=== PATIENT | male | born 1965 | race Caucasian/White ===

== ENCOUNTER → 2017-03-01 | Outpatient (CLI) | payer OTHER ==
[~2017-03-01] MED LIST: COLACE100 MG PO; COLCRYS0.6 MG PO; HYDROCODON-ACE1 EAC9 PO; INDOCIN50 MG PO; LIPITOR40 MG PO; LO-DOSE ASPIRIN81 M1 PO; LOTENSIN10 MG PO; NORCO 5/3251 TABLET PO; ZYLOPRIM100 MG PO; [UNRECOGNIZED DRUG - REMARK] PO
== END | disposition home or self-care (01) ==
LOC: CDC 11:56
DX: Z01.810 Encounter for preprocedural cardiovascular examination (principal); I10 Essential (primary) hypertension; I49.8 Other specified cardiac arrhythmias
CPT/HCPCS: 93000

== ENCOUNTER 2017-03-04 22:04 | Inpatient (IN) | payer OTHER ==
[~2017-03-04] VITALS: Ht 172.7 cm; Wt 75.6 kg
[~2017-03-04 22:04] MED LIST changes: -COLACE100 MG PO; -HYDROCODON-ACE1 EAC9 PO; -NORCO 5/3251 TABLET PO
[2017-03-05 08:29] VITALS: BP 153/75
[2017-03-05 17:58] LABS: CHLORIDE 104 MEQ/L (99-109); POTASSIUM 3.9 MEQ/L (3.7-5.4); SODIUM 134 MEQ/L (136-147)
[2017-03-05 18:03] LABS: CREATININE 0.9 MG/DL (0.6-1.3); GFR ESTIMATE (CALCULATED) > 59 mL/min/ (58.99-99999); GLUCOSE 161 mg/dL (70-99); UREA NITROGEN (BUN) 17 mg/dL (9-23)
[2017-03-05 19:45] VITALS: BP 102/62
[2017-03-05 23:03] VITALS: BP 99/55
[2017-03-06 04:17] VITALS: BP 98/54
[2017-03-06 05:49] LABS: MCH 24.5 PG (29.0-34.0); MCHC 30.8 G/DL (30.0-36.0); MCV 79.8 FL (86-99); PLATELET COUNT 245 K/uL (156-360); RBC DIS.WIDTH-CV 15.8 % (11.8-14.6); RBC DIS.WIDTH-SD 45.6 % (39-53); WHITE BLOOD COUNT 9.7 K/uL (4.1-10.2)
[2017-03-06 06:14] LABS: CHLORIDE 106 MEQ/L (99-109); CREATININE 0.8 MG/DL (0.6-1.3); GFR ESTIMATE (CALCULATED) > 59 mL/min/ (58.99-99999); GLUCOSE 235 mg/dL (70-99); SODIUM 135 MEQ/L (136-147); UREA NITROGEN (BUN) 14 mg/dL (9-23)
[2017-03-06 06:19] LABS: POTASSIUM 5.1 MEQ/L (3.7-5.4)
[2017-03-06 06:22] LABS: RED BLOOD COUNT 3.26 M/uL (4.00-5.50)
[2017-03-06 07:38] VITALS: BP 98/56
[2017-03-06 11:30] VITALS: BP 93/57
[2017-03-06 15:30] VITALS: BP 100/57
[2017-03-06 20:10] VITALS: BP 107/60
[2017-03-07 00:12] VITALS: BP 99/53
[2017-03-07 04:20] VITALS: BP 100/62
[2017-03-07 07:01] LABS: HEMATOCRIT 26.6 % (38.0-50.0); HEMOGLOBIN 7.9 G/DL (12.5-16.6); MCH 24.2 PG (29.0-34.0); MCHC 29.7 G/DL (30.0-36.0); MCV 81.6 FL (86-99); PLATELET COUNT 252 K/uL (156-360); RBC DIS.WIDTH-SD 47.5 % (39-53); RED BLOOD COUNT 3.26 M/uL (4.00-5.50); WHITE BLOOD COUNT 9.7 K/uL (4.1-10.2)
[2017-03-07 07:16] LABS: UREA NITROGEN (BUN) 8 mg/dL (9-23)
[2017-03-07 07:17] LABS: ALBUMIN 2.5 G/DL (3.2-4.8); ALT (GPT) 11 IU/L (3-49); AST (GOT) 13 IU/L (2-34); CHLORIDE 105 MEQ/L (99-109); CREATININE 0.8 MG/DL (0.6-1.3); GFR ESTIMATE (CALCULATED) > 59 mL/min/ (58.99-99999); POTASSIUM 4.7 MEQ/L (3.7-5.4); SODIUM 140 MEQ/L (136-147)
[2017-03-07 07:19] LABS: ALKALINE PHOSPHATASE 52 IU/L (3-129); GLUCOSE 119 mg/dL (70-99); TOTAL BILIRUBIN 0.3 MG/DL (0.0-1.0); TOTAL PROTEIN 4.2 G/DL (6.4-8.3)
[2017-03-07 07:20] VITALS: BP 107/56
[2017-03-07 11:18] VITALS: BP 105/58
[2017-03-07 15:03] VITALS: BP 101/59
[2017-03-07 19:01] VITALS: BP 119/59
[2017-03-08] VITALS (7 sets, daily range): BP systolic 118–143; BP diastolic 65–76
[2017-03-08 09:05] LABS: BASOPHIL (%) 0.4 % (0-1); EOSINOPHIL (%) 3.7 % (0-5); EOSINOPHIL COUNT 0.3 K/uL (0-0.3); HEMATOCRIT 26.3 % (38.0-50.0); HEMOGLOBIN 8.2 G/DL (12.5-16.6); IMMATURE GRANULOCYTE (%) 0.3 % (0.0-0.7); LYMPHOCYTE (%) 22.3 % (15-42); LYMPHOCYTE COUNT 1.6 K/uL (1.0-2.8); MCH 25.3 PG (29.0-34.0); MCHC 31.2 G/DL (30.0-36.0); MCV 81.2 FL (86-99); MONOCYTE (%) 8.1 % (3-12); MONOCYTE COUNT 0.6 K/uL (0-0.8); NEUTROPHIL (%) 65.2 % (45-76); NEUTROPHIL COUNT 4.5 K/uL (1.8-6.4); PLATELET COUNT 210 K/uL (156-360); RBC DIS.WIDTH-CV 16.1 % (11.8-14.6); RBC DIS.WIDTH-SD 47.3 % (39-53); RED BLOOD COUNT 3.24 M/uL (4.00-5.50); WHITE BLOOD COUNT 6.9 K/uL (4.1-10.2)
[2017-03-08 09:20] LABS: CHLORIDE 102 MEQ/L (99-109); CREATININE 0.8 MG/DL (0.6-1.3); GFR ESTIMATE (CALCULATED) > 59 mL/min/ (58.99-99999); GLUCOSE 124 mg/dL (70-99); POTASSIUM 4.5 MEQ/L (3.7-5.4); SODIUM 136 MEQ/L (136-147); UREA NITROGEN (BUN) 6 mg/dL (9-23)
[2017-03-09 04:12] VITALS: BP 143/72
[2017-03-09 06:10] LABS: HEMOGLOBIN 8.6 G/DL (12.5-16.6); MCH 24.5 PG (29.0-34.0); MCHC 30.7 G/DL (30.0-36.0); MCV 79.8 FL (86-99); PLATELET COUNT 221 K/uL (156-360); RBC DIS.WIDTH-CV 15.9 % (11.8-14.6); RED BLOOD COUNT 3.51 M/uL (4.00-5.50); WHITE BLOOD COUNT 7.5 K/uL (4.1-10.2)
[2017-03-09 06:37] LABS: CHLORIDE 101 MEQ/L (99-109); CREATININE 0.8 MG/DL (0.6-1.3); GFR ESTIMATE (CALCULATED) > 59 mL/min/ (58.99-99999); GLUCOSE 123 mg/dL (70-99); POTASSIUM 5.3 MEQ/L (3.7-5.4); SODIUM 138 MEQ/L (136-147); UREA NITROGEN (BUN) 5 mg/dL (9-23)
[2017-03-09 07:25] VITALS: BP 122/76
[2017-03-09 11:05] VITALS: BP 105/63
[2017-03-09 15:35] VITALS: BP 105/59
[2017-03-09 20:55] VITALS: BP 110/72
[2017-03-10] VITALS: BP 131/74
[2017-03-10 00:37] VITALS: BP 131/74
[2017-03-10 04:11] VITALS: BP 133/71
[2017-03-10 08:06] VITALS: BP 120/76
[2017-03-10] MEDS ORDERED: COLACE100 MG PO (08:57)
[2017-03-10] MEDS ORDERED: HYDROCODON-ACE1 EAC9 PO (08:57)
[2017-03-10] MEDS ORDERED: NORCO 5/3251 TABLET PO (09:12)
[2017-03-10 10:55] VITALS: BP 122/66
== END 2017-03-10 12:30 | disposition home or self-care (01) | DRG 330 ==
LOC: ENRESERV 22:04 → 2SOUTH 03-05 07:46 → ENRESERV 03-05 15:04 → 2SOUTH 03-05 15:10 → 5EAST 03-05 19:13 → 2SOUTH 03-12 12:38
PROVIDERS: Physician Assistant Surgical; Surgery
PROC: 3E0R3BZ Introduction of Anesthetic Agent into Spinal Canal, Percutaneous Approach (ICD-10-PCS; principal; 2017-03-05)
PROC: 0DTE0ZZ Resection of Large Intestine, Open Approach (ICD-10-PCS; principal; 2017-03-05)
PROC: 0WBH0ZZ Excision of Retroperitoneum, Open Approach (ICD-10-PCS; principal; 2017-03-05)
PROC: 00HU33Z Insertion of Infusion Device into Spinal Canal, Percutaneous Approach (ICD-10-PCS; principal; 2017-03-05)
DX: C18.6 Malignant neoplasm of descending colon (principal); C18.2 Malignant neoplasm of ascending colon; Q43.8 Other specified congenital malformations of intestine; R34 Anuria and oliguria; I95.9 Hypotension, unspecified; E86.0 Dehydration; E86.1 Hypovolemia; D63.0 Anemia in neoplastic disease; I10 Essential (primary) hypertension; K59.00 Constipation, unspecified; M10.9 Gout, unspecified; R63.4 Abnormal weight loss; Z68.24 Body mass index [BMI] 24.0-24.9, adult
CPT/HCPCS: 80048; 80053; 85025; 85027; 88309; 94799; J0131; J1100; J1170; J1885; J2001; J2250; J2405; J2710; J3010; J3475; J7030; J7050; S0020; S0028; S0074